=== PATIENT | female | born 1945 | race Caucasian/White ===

== ENCOUNTER → 2016-10-19 | Outpatient (CLI) | payer BC, MEDICARE ==
[~2016-10-19] MED LIST: ACETAMINOPHEN PO; CIPRO PO; CRESTOR40 MG PO; FOSINOPRIL PO; HUMALOG100 U/ML SUBQ; HUMULIN 70/30 V10 ML; HUMULIN N100 U/ML SUBQ; HUMULIN R100 U/ML SUBQ; LANTUS100 UNITS/ SUBQ; LEVAQUIN PO; LEVAQUIN750 MG PO; LIPITOR40 MG PO; LISINOPRIL PO; METFORMIN PO; OMNICEF300 MG PO; OXYGEN; PHENERGAN PO; PRINIVIL40 MG PO; VICODIN PO; VITAMIN B-121000 MC1 SL; VYTORIN PO; ZESTRIL40 MG PO; ZOCOR PO; [UNRECOGNIZED DRUG - OTHER]; [UNRECOGNIZED DRUG - OTHER] PO
[2016-10-19 10:50] LABS: BLOOD UREA NITROGEN 18 mg/dL (9-23); BUN/CREATININE RATIO 25.71; CALCIUM SERUM 8.6 mg/dL (8.4-10.2); CARBON DIOXIDE 30 mmol/L (22-31); CHLORIDE 94 mmol/L (100-111); CHOLESTEROL 236 mg/dL (0-200); CREATININE SERUM 0.7 mg/dL (0.6-1.4); GLOM FILT RATE Estimated ABOVE60 mL/min (>60); GLUCOSE FASTING 133 mg/dL (70-110); HDL CHOLESTEROL 43 mg/dL (35-95); LDL/HDL RATIO 4 RATIO (0-4); POTASSIUM 4.2 mmol/L (3.5-5.1); SODIUM 132 mmol/L (135-145); TRIGLYCERIDES 195 mg/dL (10-160)
[2016-10-19 10:51] LABS: LDL CHOLESTEROL 154 mg/dL (-130)
== END | disposition home or self-care (01) ==
LOC: SLAB 09:52
PROVIDERS: Internal Medicine Endocrinology, Diabetes & Metabolism
DX: E11.65 Type 2 diabetes mellitus with hyperglycemia (principal)
CPT/HCPCS: 36415; 80048; 80061; 83036

== ENCOUNTER → 2016-11-11 | Outpatient (CLI) | payer BC, MEDICARE ==
[2016-11-11 09:16] LABS: BUN/CREATININE RATIO 22.22; CALCIUM SERUM 8.8 mg/dL (8.4-10.2); CREATININE SERUM 0.9 mg/dL (0.6-1.4); GLOM FILT RATE Estimated 65.3 mL/min (>60); POTASSIUM 4.3 mmol/L (3.5-5.1)
== END | disposition home or self-care (01) ==
LOC: SLAB 08:36
PROVIDERS: Internal Medicine Endocrinology, Diabetes & Metabolism
DX: E11.65 Type 2 diabetes mellitus with hyperglycemia (principal); E78.4 Other hyperlipidemia
CPT/HCPCS: 36415; 80048; 80061; 83036

== ENCOUNTER → 2017-03-22 | Outpatient (CLI) | payer BC, MEDICARE ==
[2017-03-22 14:23] LABS: BUN/CREATININE RATIO 18.18; CALCIUM SERUM 8.9 mg/dL (8.4-10.2); CREATININE SERUM 1.1 mg/dL (0.6-1.4); GLOM FILT RATE Estimated 50.8 mL/min (>60); POTASSIUM 4.5 mmol/L (3.5-5.1)
== END | disposition home or self-care (01) ==
LOC: SLAB 13:36
PROVIDERS: Internal Medicine Endocrinology, Diabetes & Metabolism
DX: E11.65 Type 2 diabetes mellitus with hyperglycemia (principal); E78.4 Other hyperlipidemia
CPT/HCPCS: 36415; 80048; 83036

== ENCOUNTER 2017-03-24 16:03 | Emergency (ER) | payer BC, MEDICARE ==
[~2017-03-24] VITALS: Ht 154.9 cm; Wt 81.2 kg
--- NOTE | ~2017-03-24 | CT4 ---
[facility] A Service of [facility] & [facility] [place] RADIOLOGY TEXT RESULTS PATIENT: YADIRA ZIMMERMAN LOCATION: [facility] : 49 UNIT #: [id number] AGE: [address]: Boston Bajwa MD SEX: F ORDER DR: [id number] [facility] [address] [place], [place] [address] [id number] MR#: [id number] Acc #: [id number] NAME: YADIRA ZIMMERMAN. : 1945 SEX: F STUDY DATE/TIME: 03/24/2017 19:17 UNIT: [facility] ROOM: STUDY DESCRIPTION: CT Abd and Pelv Wo Cont Attending Physician: Boston Bajwa M.D. Ordering Physician: Boston Bajwa M.D. Primary Care Physician: Vipin Pascal M.D. MEDICAL IMAGING REPORT This report is preliminary unless electronic signature is present EXAM CT scan of the abdomen and pelvis with contrast, 03/24/2017 HISTORY Left flank pain beginning today with nausea and vomiting today. Evaluate for obstructing renal calculus. TECHNIQUE Spiral CT was performed through the abdomen and pelvis without oral or intravenous contrast administration, using renal stone protocol. This CT exam was performed with one or more of the following radiation dose reduction techniques: Automatic exposure control, adjustment of mA and/or kV according to patient size, and iterative reconstruction. FINDINGS ABDOMEN: There is no obstructing renal or ureteral calculus. Stable left renal cyst compared with 03/31/2012. Calcified granulomas are seen in the liver and spleen. The liver demonstrates prominence of the caudate lobe and surface nodularity, suggesting cirrhosis. Clinical correlation is recommended. The pancreas and adrenal glands are normal. The gallbladder is surgically absent. PELVIS FINDINGS: There are postsurgical changes involving the sigmoid and ascending colon. The gut is otherwise unremarkable. No adenopathy is seen and there is no free fluid in the abdomen or pelvis. Multiple collateral vessels are seen along the anterior abdominal wall, unchanged. Images of the lung bases are unremarkable. IMPRESSION 1. No obstructing renal or ureteral calculus. Left renal cyst is stable compared with 03/31/2012. 2. Calcified granulomas in the liver and spleen. The liver demonstrates prominence of the caudate lobe as well as surface STS. [facility] A Service of [facility] & [facility] RADIOLOGY TEXT RESULTS PATIENT: YADIRA ZIMMERMAN LOCATION: [facility] : 49 UNIT #: [id number] AGE: [address]: Boston Bajwa MD SEX: F ORDER DR: nodularity, suggesting cirrhosis. Clinical correlation is recommended. 3. Surgical absence of the gallbladder. 4. Multiple venous collaterals noted along the anterior abdominal wall, as noted on the previous examination. 5. Postsurgical changes involving the colon as detailed above. Dictated by... Godwin Quick M.D. THIS IS AN ELECTRONICALLY VERIFIED REPORT Godwin Quick M.D. at 03/25/2017 2:14 PM KRT/psc TD: 03/25/2017 00:36 JOB #: [id number] MEDICAL IMAGING REPORT Page 1 of 1 COPY
[2017-03-24 17:36] LABS: BASOPHIL% 0.3 % (0-2.5); EOSINOPHIL% 0.3 % (0.0-7.0); HEMATOCRIT 37.1 % (35.0-45.0); HEMOGLOBIN 12.2 gm/dL (12.0-16.0); LYMPHOCYTE# 0.5 X10e3 (1.0-3.5); LYMPHOCYTE% 8.4 % (17.0-45.0); MEAN CELL VOLUME 90.1 FL (83-96); MEAN CORPUSCULAR HEMOGLOBIN 29.7 PG (28-34); MEAN PLATELET VOLUME 8.8 FL (6.5-11.5); MONOCYTE# 0.4 X10e3 (0-1.0); PLATELET COUNT 134 X10e3 (140-420); RED BLOOD COUNT 4.12 X10e (3.90-5.30); WHITE BLOOD COUNT 5.9 X10e3 (4.0-10.5)
[2017-03-24 17:39] LABS: DIFF IND NO
[2017-03-24 17:55] LABS: URINE SOURCE CLEAN CATCH
[2017-03-24 18:00] LABS: ALBUMIN SERUM 3.6 g/dL (3.5-5.0); BILIRUBIN, DIRECT 0.2 mg/dL (0.0-0.2); BILIRUBIN,INDIRECT 0.2 mg/dL (0.0-0.9); BILIRUBIN,TOTAL 0.4 mg/dL (0.2-2.0); BUN/CREATININE RATIO 22.5; CALCIUM SERUM 9.2 mg/dL (8.4-10.2); CREATININE SERUM 0.8 mg/dL (0.6-1.4); GLOM FILT RATE Estimated 74.8 mL/min (>60); PROTEIN TOTAL SERUM 8.1 g/dL (6.0-8.3)
[2017-03-24 18:02] LABS: URINE APPEARANCE CLOUDY; URINE BILIRUBIN NEG (NEG); URINE BLOOD 3+ (NEG); URINE COLOR YELLOW; URINE GLUCOSE >1000 MG/DL (NEG); URINE KETONE NEG (NEG); URINE LEUKOCYTE ESTERASE 2+ (NEG); URINE NITRATE POS (NEG); URINE PROTEIN 1+ (NEG); URINE SPECIFIC GRAVITY 1.025 (1.003-1.035)
[2017-03-24 18:05] LABS: CULTURE INDICATED? YES; URBCS1 AUWI INNUM /[HPF] (0-2); URINE BACTERIA AUWI 4+ (NEGATIVE); URINE SQUAMOUS EPITHELIAL CELL OCC /[HPF]; UWBCS1 AUWI 100-200 (0-5)
== END 2017-03-24 20:50 | disposition home or self-care (01) ==
LOC: CED 16:03
DX: N39.0 Urinary tract infection, site not specified (principal); E11.9 Type 2 diabetes mellitus without complications; I10 Essential (primary) hypertension; Z90.49 Acquired absence of other specified parts of digestive tract; Z79.899 Other long term (current) drug therapy
CPT/HCPCS: 74176; 80048; 80076; 81003; 85025; 87086; 87088; 87186; 96365; 99284; J0696